=== PATIENT | female | born 2000 | race Caucasian/White ===

== ENCOUNTER 2024-05-18 23:00 | Emergency (ER) | payer OTHER, SELFPAY ==
[2024-05-18 23:12] VITALS: BP 129/83; PULSE 91; RESP 18; TEMP 37; O2SAT 97; BMI 33.9
--- NOTE | 2024-05-18 23:29 | ED.BACK ---
HPI - Back Pain/Injury General Chief Complaint: Back Pain/Injury Stated Complaint: back pain Time Seen by Provider: 05/18/24 23:21 Source: patient Mode of arrival: Ambulatory History of Present Illness HPI Narrative: Patient is a 24-year-old female who is here for evaluation of lower back discomfort. She states that she initially injured her lower back about a year ago when she was bending over and picking something up. Symptoms have kind of come and gone since then. Current back discomfort started earlier today. No specific injury. Has not taken anything for the symptoms prior to arrival. Related Data Previous Rx's Medication Instructions Recorded cyclobenzaprine 10 mg tablet 10 mg PO TID PRN muscle spasm #12 05/19/24 tabs Allergies Allergy/AdvReac Type Severity Reaction Status Date / Time ketorolac [From Toradol] AdvReac Vomiting Verified 05/18/24 23:12 Review of Systems Review of Systems Narrative: See HPI Patient History Social History Smoking Status: Current some day smoker Smoking Status: Current some day smoker Substance Use Type: does not use Exam Initial Vital Signs Initial Vital Signs: Vital Signs Temperature 98.6 F 05/18/24 23:12 Pulse Rate 91 H 05/18/24 23:12 Respiratory Rate 18 05/18/24 23:12 Blood Pressure 129/83 05/18/24 23:12 Pulse Oximetry 97 05/18/24 23:12 Oxygen Delivery Method Room Air 05/18/24 23:12 Const General: comfortable and No ill appearing Back/Spine/Pelvis Other: Discomfort to palpation bilateral with left being greater than right paraspinal thoracolumbar discomfort. Skin General: no rashes or lesions noted Neuro General: patient alert and patient awake Extrem General: normal to inspection Course Orders Ordered: Discontinued Medications Cyclobenzaprine HCl (Cyclobenzaprine 10 Mg Tablet) 10 mg PO NOW ONE Stop: 05/18/24 23:30 Last Admin: 05/18/24 23:33 Dose: 10 mg Documented By: JAD Cyclobenzaprine HCl (Cyclobenzaprine 10 Mg Prepack) 1 bottle MISC DIRECTED ONE Stop: 05/19/24 00:10 Last Admin: 05/19/24 00:15 Dose: 1 bottle Documented By: JAD Ibuprofen (Ibuprofen 400 Mg Tablet) 800 mg PO NOW ONE Stop: 05/18/24 23:30 Last Admin: 05/18/24 23:33 Dose: 800 mg Documented By: JAD Vital Signs Vital signs: Vital Signs - 8 hr 05/18/24 23:12 05/19/24 00:21 05/19/24 00:21 Temperature 98.6 F Pulse Rate 91 H 67 Respiratory Rate 18 18 Blood Pressure 129/83 133/73 Pulse Oximetry 97 99 Oxygen Delivery Method Room Air Room Air MDM - Back Pain/Injury MDM Narrative Medical decision making narrative: Her symptoms are clearly muscular. No indication for radiologic studies. Low suspicion for fracture, cauda equina, hematoma, abscess. Symptom treatment for now. Medications administered here in the emergency department and prescriptions for home treatment. Discharge Plan Departure Patient Disposition: Home Clinical Impression: Acute back pain Instructions: DI for Back Strain or Sprain Activity Restrictions/Additional Instructions: Recommend continuing conservative measures with heat and ice and massage and stretching. Also recommend anti-inflammatory such as Motrin or Naprosyn. Tylenol can be helpful as well. Use the muscle relaxers as needed. Try to stay as active as possible. Return to the emergency department for new symptoms. Prescriptions: New cyclobenzaprine 10 mg tablet 10 mg PO TID PRN (Reason: muscle spasm) Qty: 12 0RF Referrals: [facility] [Primary Care Provider] - Stand Alone Forms: Patient Portal/API/Survey
[2024-05-18] MEDS: CYCLOBENZAPRINE 10 MG TABLET PO (23:33)
[2024-05-18] MEDS: IBUPROFEN 400 MG TABLET 800 MG PO (23:33)
[2024-05-19] MEDS: CYCLOBENZAPRINE 10 MG PREPACK 1 BOTTLE MISC (00:15)
[2024-05-19 00:21] VITALS: BP 133/73; PULSE 67; RESP 18; O2SAT 99
== END 2024-05-19 00:31 | disposition home or self-care (01) ==
PROVIDERS: Emergency Provider Emergency Medicine
DX: M54.50 Low back pain, unspecified (principal)
CPT/HCPCS: 99283